=== PATIENT | female | born 1985 | race Caucasian/White ===

== ENCOUNTER → 2017-01-16 | Outpatient (CLI) | payer OTHER | LOC: BRMIMAGING 13:08 | DX: E04.1 Nontoxic single thyroid nodule (principal) ==

== ENCOUNTER → 2018-07-04 | Outpatient (CLI) | payer OTHER | LOC: FIMAGING 16:40 | PROVIDERS: ATTEND Internal Medicine Pulmonary Disease | DX: J45.909 Unspecified asthma, uncomplicated (principal) ==